=== PATIENT | male | born 1980 | race Caucasian/White ===

== ENCOUNTER → 2017-05-01 | Day surgery (SDC) | payer BC ==
[~2017-05-01] MED LIST: BUPIVACAINE HCL PF 0.25% 30 ML VIAL ONE; CLINDAMYCIN PHOS 600 MG/4 ML VIAL ONE; EFFE37.5 PO; FEXO180; KETOROLAC TROMETHAMINE 30 MG/ML (IVP) VIAL IV PUSH ONE; LACTATED RINGER'S 1000 ML INJ 1,000 ML ONE; LORC10TA PO; MIDAZOLAM HCL 2 MG/2 ML VIAL ONE; MONT10TA2; ONDANSETRON HCL 4 MG/2 ML VIAL IV PUSH ONE; OSEL75 PO; PROPOFOL 200 MG/20 ML AMP IV ONE; RESP: ALBUTEROL 2.5 MG/3 ML NEB (SCH) ONE
--- NOTE | 2017-05-02 13:44 | MP ---
cc: VARUN SIMS DPM DATE OF SURGERY: 05/01/2017 PREOPERATIVE DIAGNOSIS Left foot second metatarsophalangeal joint dislocation, plantar plate tear, metatarsalgia. POSTOPERATIVE DIAGNOSIS Left foot second metatarsophalangeal joint dislocation, plantar plate tear, metatarsalgia. PROCEDURES PERFORMED Repair of plantar plate and dislocation with second metatarsal osteotomy. SPECIMEN Joint capsule, clinically synovitis. ESTIMATED BLOOD LOSS Less than 30 mL. COMPLICATIONS None. ANESTHESIA General; 20 cc of 0.25% Marcaine plain. IMPLANTABLE A 1.45 Juggernaut soft tissue tendon anchor to stabilize the plantar plate, as well as a 14 mm 2.0 FreeCharge titanium cannulated screw. TOURNIQUET TIME 55 minutes at a setting of 215 mmHg. DISPOSITION PACU then discharge home once stable per Same-Day Surgery criteria. JUSTIFICATION FOR PROCEDURE A pleasant 36-year-old male who was diagnosed with a plantar plate tear. He exhausted six weeks of conservative measures with no improvement. He wished to move forward with surgical intervention. SURGERY IN DETAIL Under mild sedation the patient was brought into the operating room and placed on the operating table in the supine position. Following the induction of general anesthesia, local anesthesia was obtained about the proximal second ray utilizing local 0.25% Marcaine plain. The patient's left foot was then scrubbed, prepped and draped in the usual aseptic fashion. The foot was elevated and exsanguinated. The previously placed mid calf tourniquet was inflated to 215 mmHg. Fluoroscopy was used to visualize the patient's parabola. The second metatarsal appeared to be slightly longer as compared to the first metatarsal. This is likely the biomechanical cause for the plantar plate pathology. A linear incision was made over the dorsal aspect of the second MPJ. Sharp and blunt dissection was carried down to the extensor digitorum longus tendon. A linear incision was made along the capsule revealing a brown red synovial hypertrophy. This was then sharply excised and sent for pathological analysis. Utilizing a [place] elevator it was used to gently probe the dorsal surface of the plantar plate and it was noted to be perforated. At this time a Z-incisional approach was made on the plantar surface of the foot. This was a full-thickness incision down to subcutaneous fat. Careful sharp and blunt dissection was carried down identifying the flexor digitorum longus tendon. It was retracted from the dissecting field and the plantar plate was then visualized. It was noted to be unstable, frayed and with obvious signs of a rupture. At this time utilizing the [place] micro debridement technique it was deployed at the level of the plantar plate to assist in healing. Linear tears within the plantar plate were plicated utilizing Ethibond suture material. Next, a dorsal to distal to plantar proximal second metatarsal osteotomy was performed shortening the second metatarsal. This was fixated utilizing proper AO technique x1 with a FreeCharge 2.0 screw. Next, a Juggernaut tendon anchor was deployed bicortical from the plantar to the dorsal surface of the second proximal phalanx base and then securing the base of the second proximal phalanx to the remaining plantar plate, further securing the plantar plate. The toe was brought through range of motion. There was no instability. The dorsal surface was then probed utilizing the [place] and there were no perforations. At this time the wound was flushed with copious amounts of normal saline. Deep subcutaneous fat was closed utilizing 3-0 Vicryl. Skin was closed utilizing nylon. Upon relieving the tourniquet there was a prompt hyperemic response to all digits without any delayed capillary fill time. The patient was transferred from OR to PACU with all vital signs stable. He is a heel transfer weight bear only. He will ice and elevate. I will see the patient in 3-5 days. ROCHELLE Suh /3:51 PM /1:34 PM
== END | disposition home or self-care (01) ==
LOC: ESDC 12:42
PROVIDERS: ATTEND Podiatrist Foot & Ankle Surgery
DX: S93.125A Dislocation of metatarsophalangeal joint of left lesser toe(s), initial encounter (principal); M24.175 Other articular cartilage disorders, left foot; M77.42 Metatarsalgia, left foot
CPT/HCPCS: 01470; 01480; 28308; 28313; 73620; 76000; 88305; C1713; J1885; J2250; J2405; J3010; J7120; J7613; 88304; 88311

== ENCOUNTER → 2017-07-08 | Day surgery (SDC) | payer BC ==
[~2017-07-08] MED LIST changes: +ACETAMINOPHEN/HYDROcodone 325 MG/5 MG TAB ONE; -KETOROLAC TROMETHAMINE 30 MG/ML (IVP) VIAL IV PUSH ONE; +KETOROLAC TROMETHAMINE 60 MG/2 ML (IM) VIAL IM ONE; -LACTATED RINGER'S 1000 ML INJ 1,000 ML ONE; +MORPHINE SULFATE 4 MG/ML INJ ONE; -RESP: ALBUTEROL 2.5 MG/3 ML NEB (SCH) ONE
--- NOTE | 2017-07-08 22:00 | MP ---
cc: VARUN SIMS DPM DATE OF SURGERY 07/08/17 PREOPERATIVE DIAGNOSIS Right second MPJ plantar plate tear, dislocation, metatarsalgia. POSTOPERATIVE DIAGNOSIS Right second MPJ plantar plate tear, dislocation, metatarsalgia. PROCEDURES PERFORMED Second metatarsal osteotomy with stabilization of plantar plate and plantar apparatus flexor tendons. SPECIMEN Soft tissue x2. ESTIMATED BLOOD LOSS Less than 30 ml. COMPLICATIONS None. ANESTHESIA General with local, 30 cc of 0.25% Marcaine plain. TOURNIQUET TIME Tourniquet 60 minutes at a setting of 215 mmHg about the patient's mid calf. PLAN OF ACTIVITY PACU then DC home once stable per same-day surgery criteria. MATERIALS USED X1 Juggernaut soft tissue tendon anchor and times one 2.0 [employer] screw. JUSTIFICATION FOR PROCEDURE A 36-year-old male. Unfortunately, he developed the same sequela on the right foot as previously on the left which needed a plantar plate repair. Blood work showed a slightly elevated white blood cell count with a slightly elevated CRP, however, blood work was otherwise normal. MRI showed severe capsulitis. Clinically, the patient had a longer second metatarsal. We devised a plan to move forward with the previously stated procedure. PROCEDURE IN DETAIL Under mild sedation the patient is brought to the operating room, placed on the operative in the supine position. Following the induction of general anesthesia, local anesthesia was obtained about the forefoot utilizing standard block fashion. Right foot was then scrubbed, prepped and draped in the usual aseptic fashion. The foot was elevated, exsanguinated and the previously placed mid calf tourniquet was inflated to 215 mmHg. A dorsal incision was made over the second MPJ. Sharp and blunt dissection was carried down medially to the extensor digitorum longus tendons. Linear capsule incision was noted down to periosteum. There is noted to be severe synovitis and chalky white substance. This was then debrided plantar, dorsal and medial. Next, a metatarsal osteotomy was performed. The second metatarsal was then transposed approximately 2 mm and fixated utilizing x1 2.0 [employer] screw. The prominent dorsal shelf was then transected to allow ease of range of motion. Next, a Z type curvilinear incision took place of the plantar second MPJ. Sharp and blunt dissection was carried down to the level of the extensor digitorum longus tendon. There is noted to be perforation and white chalky substance encompassing the patient's second MPJ. A plication of the second MPJ took place at this time. There is noted to be an unstable plantar plate. A tendon anchor was then placed at the base of the proximal phalanx which anchored in the dorsal cortex and then the plantar plate was then stabilized by suturing to the proximal. There is noted to be a stable plantar second MPJ without any perforation. The wound was flushed with copious amounts of normal saline. A culture was taken. Deep dermis and capsular tissue was closed utilizing 3-0 Vicryl. Skin was closed utilizing nylon, 4-0 on top, 3-0 on bottom. A bulky bandage placed. The patient transferred from OR to PACU with all vital signs stable. Upon relieving the tourniquet there was a prompt hyperemic response to all digits without any delayed capillary fill time. Of note, we send a specimen to pathology for permanent and as well as for examination for gout crystals. The patient intraoperatively received 30 IM and 30 IV of Toradol. I will continue to follow along the pathology. The patient is partial heel weight bear to tolerance. He will ice, elevate. I will see the patient in 3-5 days. ROCHELLE Suh /8:47 AM /9:40 PM
== END | disposition home or self-care (01) ==
LOC: ESDC 06:22
PROVIDERS: ATTEND Podiatrist Foot & Ankle Surgery
DX: S93.125A Dislocation of metatarsophalangeal joint of left lesser toe(s), initial encounter (principal); M77.41 Metatarsalgia, right foot; M24.174 Other articular cartilage disorders, right foot
CPT/HCPCS: 01470; 01480; 28270; 28308; 73620; 76000; 87015; 87070; 87102; 87116; 87205; 87206; 88305; C1713; J1885; J2250; J2270; J2405; J3010; 88304; 88311